=== PATIENT | male | born 1980 | race Caucasian/White ===

== ENCOUNTER 2023-10-05 16:26 | Emergency (ER) | payer SELFPAY ==
[2023-10-05 16:33] VITALS: BP 182/106; PULSE 86; RESP 17; TEMP 36.7; O2SAT 97; BMI 35.2
--- NOTE | 2023-10-05 17:02 | W.ED.BACK ---
HPI - Back Pain/Injury General: Chief Complaint: Back Pain/Injury Stated Complaint: lower back pain, pain down left leg Time Seen by Provider: 10/05/23 16:39 History of Present Illness: 42-year-old male patient comes in today with low back pain rating down the left leg. Patient does have a history of lumbar radiculopathy with fusion at [facility] by Dr. Gold. Patient denies any loss of bowel or bladder control. Patient states 2 weeks ago he was working in the [employer] and slipped falling and injuring his back. Since then patient has had some persistent pain and discomfort. Patient been unable to work for the last week. Patient appears nontoxic. Patient has been seeing the chiropractor with minimal to no relief. Patient appears in mild to moderate pain. Patient ambulates with antalgic gait. Review of Systems General: Reports: 10 or more systems reviewed and unremarkable except in HPI and below Musc: Reports: back pain Physical Exam Const: COMMON NORMALS: alert HENMT: COMMON NORMALS: normocephalic HEAD & SCALP: normocephalic Neck/C-Spine: COMMON NORMALS: full ROM Resp: COMMON NORMALS: normal respiratory effort Cardio: COMMON NORMALS: regular rate RATE: regular rate Back/Pelvis: THORACIC SPINE/UPPER BACK: No thoracic spinal tenderness LUMBAR SPINE/LOWER BACK: No lumbar spinal tenderness and No paraspinal muscle tenderness Extremity: COMMON NORMALS: full ROM Neuro: SENSORIUM/ORIENTATION: Yes alert Skin: COMMON NORMALS: turgor normal GENERAL SKIN EXAM: turgor normal Course Vital Signs: Vital signs: Vital Signs Temperature 98.1 F 10/05/23 16:33 Pulse Rate 86 10/05/23 16:33 Respiratory Rate 17 10/05/23 16:33 Blood Pressure 182/106 10/05/23 16:33 Pulse Oximetry 97 10/05/23 16:33 Oxygen Delivery Me thod Room Air 10/05/23 16:33 MDM - Back Pain/Injury Medical Decision Making 42-year-old male comes in today for complaints of low back pain rating down the left leg. No obvious swelling is noted in the extremity. Respirations are even lungs are clear to auscultation. Abdomen soft nontender. Distal sensation is intact. No swelling is noted in the extremity. Vital signs are normal except for elevated blood pressure 182/106. Differential diagnosis includes but not limited to intervertebral disc disease, facet arthritis, lumbar strain. CT of the lumbar spine noted no significant degenerative disc disease or bony encroachment of the neural foramina or acute fracture or listhesis. Reviewed exam with patient with recommendations for treatment and follow-up. Patient reported understanding and agreed to plan. Labs Radiology Impressions Lumbar Spine CT 10/05/23 17:07 IMPRESSION: 1. No acute lumbar spine fracture or listhesis. 2. No significant degenerative disc disease or bony encroachment on the neural foramina. All radiology interpretation(s) finalized by discharge Discharge Plan Discharge Patient Disposition: Home Clinical Impression: Strain of lumbar region Qualifiers: Encounter type: initial encounter Qualified Code(s): S39.012A - Strain of muscle, fascia and tendon of lower back, initial encounter Sciatica Qualifiers: Laterality: left Qualified Code(s): M54.32 - Sciatica, left side Condition: Stable Prescriptions: New diclofenac sodium 75 mg tablet,delayed release (DR/EC) 75 mg PO BID Qty: 20 0RF cyclobenzaprine 10 mg tablet 10 mg PO BID PRN (Reason: muscle spasm) Qty: 20 0RF hydrocodone-acetaminophen 5-325 mg tablet 1 tab PO Q8H PRN (Reason: pain (scale score 7-10)) Qty: 7 0RF Discharge Orders: Discharge ED (Routine); Ordered 10/05/23 Ordered By: Aydin Bentley Referrals: Lisa Moser APN [Primary Care Provider] - Discharge Diet: Usual diet Discharge Activity: Increase activity as tolerated Patient Instructions: Back Pain (ED), Opioid Safety Activity Restrictions/Additional Instructions: Activity as tolerated. Gentle stretching and range of motion exercises. Use ice and heat to help control pain. Take diclofenac 75 mg 1 tablet 2 times daily for the next 10 days for pain and inflammation. Use cyclobenzaprine 10 mg 2 times daily as needed for muscle spasms. Use hydrocodone 1 tab every 8 hours as needed for severe pain. Avoid the use of cyclobenzaprine and hydrocodone while using equipment or driving that may put yourself or others at risk. Follow-up with primary care for further instructions. Case management will contact you regarding a follow-up appointment with orthopedic spine. Return to ER for new concerns. Coding Level of Care Code ED [employer] Supervisor for Nuha Brunson
--- NOTE | 2023-10-05 17:07 | CTR_ITS ---
PROCEDURE INFORMATION: Exam: CT Lumbar Spine Without Contrast Exam date and time: 10/05/2023 5:12 PM Age: 42 years old Clinical indication: Pain; Lumbago with sciatica; Left; Prior surgery; Surgery date: 6+ months; Surgery type: Lower back; Additional info: Lumbar radiculopathy TECHNIQUE: Imaging protocol: Computed tomography of the lumbar spine without contrast. Radiation optimization: All CT scans at this facility use at least one of these dose optimization techniques: automated exposure control; mA and/or kV adjustment per patient size (includes targeted exams where dose is matched to clinical indication); or iterative reconstruction. COMPARISON: No relevant prior studies available. RADIATION DOSE METRICS: Total DLP (mGy-cm): 919.51 FINDINGS: Bones/joints: No acute fracture. Normal alignment. No significant disc bulge or herniation. No severe spinal canal stenosis. No significant neural foraminal narrowing. Soft tissues: Unremarkable. CT/CT lumbar spine wo con* [id number] IMPRESSION: 1. No acute lumbar spine fracture or listhesis. 2. No significant degenerative disc disease or bony encroachment on the neural foramina.
[2023-10-05] MEDS: dexamethasone 10 mg/mL INJ IM (17:19)
[2023-10-05] MEDS: ketorolac 30 mg/mL INJ IM (17:19)
[2023-10-05] MEDS: HYDROcodone-acetaminophen 7.5-325 mg Tablet 1 TAB PO (18:16)
--- NOTE | 2023-10-06 10:35 | W.ED.BACK ---
HPI - Back Pain/Injury General: Chief Complaint: Back Pain/Injury Stated Complaint: lower back pain, pain down left leg Time Seen by Provider: 10/05/23 16:39 Course Vital Signs: Vital signs: Vital Signs Temperature 98.1 F 10/05/23 16:33 Pulse Rate 86 10/05/23 16:33 Respiratory Rate 17 10/05/23 16:33 Blood Pressure 182/106 10/05/23 16:33 Pulse Oximetry 97 10/05/23 16:33 Oxygen Delivery Me thod Room Air 10/05/23 16:33 MDM - Back Pain/Injury Labs Radiology Impressions Lumbar Spine CT 10/05/23 17:07 IMPRESSION: 1. No acute lumbar spine fracture or listhesis. 2. No significant degenerative disc disease or bony encroachment on the neural foramina. Discharge Plan Discharge Patient Disposition: Home Clinical Impression: Strain of lumbar region Qualifiers: Encounter type: initial encounter Qualified Code(s): S39.012A - Strain of muscle, fascia and tendon of lower back, initial encounter Sciatica Qualifiers: Laterality: left Qualified Code(s): M54.32 - Sciatica, left side Condition: Stable Prescriptions: New diclofenac sodium 75 mg tablet,delayed release (DR/EC) 75 mg PO BID Qty: 20 0RF cyclobenzaprine 10 mg tablet 10 mg PO BID PRN (Reason: muscle spasm) Qty: 20 0RF hydrocodone-acetaminophen 5-325 mg tablet 1 tab PO Q8H PRN (Reason: pain (scale score 7-10)) Qty: 7 0RF cyclobenzaprine 10 mg tablet 10 mg PO BID Qty: 20 0RF diclofenac sodium 75 mg tablet,delayed release (DR/EC) 75 mg PO BID Qty: 20 0RF Discharge Orders: Discharge ED (Routine); Ordered 10/05/23 Ordered By: Aydin Bentley Referrals: Lisa Moser APN [Primary Care Provider] - Discharge Diet: Usual diet Discharge Activity: Increase activity as tolerated Patient Instructions: Back Pain (ED), Opioid Safety Activity Restrictions/Additional Instructions: Activity as tolerated. Gentle stretching and range of motion exercises. Use ice and heat to help control pain. Take diclofenac 75 mg 1 tablet 2 times daily for the next 10 days for pain and inflammation. Use cyclobenzaprine 10 mg 2 times daily as needed for muscle spasms. Use hydrocodone 1 tab every 8 hours as needed for severe pain. Avoid the use of cyclobenzaprine and hydrocodone while using equipment or driving that may put yourself or others at risk. Follow-up with primary care for further instructions. Case management will contact you regarding a follow-up appointment with orthopedic spine. Return to ER for new concerns. Coding Level of Care Code ED Religious Education Teacher for Nuha Brunson
--- NOTE | 2023-10-08 10:18 | PC.SOCIAL ---
Ortho Referral Referral to clinic at this time. Clinic to contact patient with appt date/time.
== END 2023-10-05 18:22 | disposition home or self-care (01) ==
PROVIDERS: Emergency Provider Nurse Practitioner Family; PCP Nurse Practitioner Family
DX: S39.012A Strain of muscle, fascia and tendon of lower back, initial encounter (principal); M54.32 Sciatica, left side; W01.0XXA Fall on same level from slipping, tripping and stumbling without subsequent striking against object, initial encounter
CPT/HCPCS: 72131; 96372; 99284; J1100; J1885

== ENCOUNTER → 2023-10-14 13:00 | Outpatient (BNVA) | payer SELFPAY | PROVIDERS: PCP Nurse Practitioner Family; Visit Provider Orthopaedic Surgery | DX: M54.9 Dorsalgia, unspecified (principal) | CPT/HCPCS: 72110 ==

== ENCOUNTER 2023-10-29 16:29 | Outpatient (CLI) | payer SELFPAY ==
--- NOTE | 2023-10-29 16:45 | MR_ITS ---
WS: [id number] MRI LUMBAR SPINE NONCONTRAST TECHNIQUE: Sagittal T1, T2 and STIR imaging. Axial T1 and T2 imaging. CLINICAL INFORMATION: back pain COMPARISON: None. FINDINGS: Mild lumbar curve. No acute compression. Prior postoperative changes LEFT hemilaminectomy L5-S1. L1-L2: Normal. L2-L3: Mild facet arthropathy. Spinal canal and foramen are patent. L3-L4: Mild annular bulging. Slight effacement of ventral thecal sac. Mild facet arthropathy. Spinal canal and foramen are patent. L4-L5: Mild annular bulging. Slight narrowing of the subarticular recess bilaterally. Moderate facet arthropathy. Foramen are patent. L5-S1: Prior LEFT hemilaminectomy. LEFT paracentral protrusion impinges the LEFT subarticular recess and traversing LEFT L5 1 nerve root. Some of this may represent granulation tissue. Recommend correla tion LEFT S1 nerve root symptoms. Foramen are patent. Mild facet arthropathy. Visualized pelvic bony structures: Normal. Paravertebral soft tissues: Normal. IMPRESSION: 1. Evidence of prior LEFT L5-S1 hemilaminectomy. 2. Suspected recurrent LEFT paracentral disc protrusion L5-S1 impinges the LEFT S1 nerve root in the subarticular recess. Some this may represent granulation tissue. Recommend correlation LEFT S1 nerve root symptoms. 3. Mild annular bulging L4-5 with narrowing of the subarticular recess bilaterally. 4. Moderate facet arthropathy L4-L5 and L5-S1.
== END 2023-10-29 16:30 | disposition home or self-care (01) ==
LOC: RAD 16:30
PROVIDERS: PCP Nurse Practitioner Family; Visit Provider Orthopaedic Surgery
DX: M54.50 Low back pain, unspecified (principal); M51.36 Other intervertebral disc degeneration, lumbar region; M47.816 Spondylosis without myelopathy or radiculopathy, lumbar region; M47.817 Spondylosis without myelopathy or radiculopathy, lumbosacral region
CPT/HCPCS: 72148